=== PATIENT | female | born 1990 | race Caucasian/White ===

== ENCOUNTER 2016-10-01 12:37 | Emergency (ER) | payer OTHER ==
[~2016-10-01 12:37] MED LIST: AMOX500T2 PO; LORT5TAB PO
[2016-10-01 13:00] VITALS: BP 112/64; PULSE 87
[2016-10-01 13:01] VITALS: RESP 20; TEMP 98
[2016-10-01 13:57] LABS: HEMATOCRIT 32.3 % (35.0-46.0); MEAN CELL VOLUME 86.2 FL (80.0-100.0); MEAN CORPUSCULAR HEMOGLOBIN 29.1 PG (27.0-34.0); MEAN CORPUSCULAR HGB CONC 33.8 % (32.0-36.0); PLATELET COUNT 265 TH/MM3 (150-450); RED BLOOD COUNT 3.75 MIL/MM3 (4.00-5.30); RED CELL DISTRIBUTION WIDTH 13.1 % (11.6-17.2); REVIEW FLAG FINAL
[2016-10-01 14:02] LABS: BLOOD, URINE NEG (NEG); COMMENT (UR) CULT NOT INDICATED; CULTURE IF INDICATED CULT NOT INDICATED; GLUCOSE,URINE NEG (NEG); KETONE, URINE NEG (NEG); MUCUS URINE FEW /lpf (OCC); NITRITE,URINE NEG (NEG); PH, URINE 7.5 (5.0-8.5); SQUAMOUS EPITHELIAL CELL URINE 6 /hpf (0-5); TRANSITIONAL EPI CELLS, URINE <1 /hpf; URINE COLOR LIGHT-YELLOW (YELLW/STRAW)
[2016-10-01 14:04] LABS: BACTERIA, URINE FEW /hpf
--- NOTE | 2016-10-01 14:16 | PD ---
HPI Chief Complaint blurry vision Date Seen: Oct 01, 2016 Time Seen: 14:04 (Ivelisse Lake MD R1) Travel History International Travel<30 Days: No Contact w/Intl Traveler<30Days: No Known Affected Area: No (Ivelisse Lake MD R1) History of Present Illness HPI Patient is a 27-year-old at 31 and 6/7 weeks gestation today by first trimester ultrasound. She presents with bilateral blurry vision first noticed when she was driving to work this morning. She did not have double vision or vision loss. She did not notice the blurry vision until she got in the car. She has never worn glasses. She made to work without complication, then called the OB office and was told to come in to the OB ED for evaluation. She denies leakage of fluid, vaginal bleeding, contractions, and is feeling baby move regularly. She notes that her baseline blood pressures are 110s/60s. She denies any history of diabetes. She has not had any complications this . She has had a normal 1hr glucose tolerance test this . At her last sonogram on September 23, EFW was 4 lbs. 10 oz. She denies other medical problems. Last sexual activity was over 48 hours ago. Her last meal was at 9 AM today. She denies CHEEMA/N/V/D/fever/sick contacts/SOB/calf pain/dizziness/seeing spots. OB care is with Dr. Piper. Para: 0 : 1 (Ivelisse Lake MD R1) History Past Medical History Medical History: Denies Significant Hx (Ivelisse Lake MD R1) Obstetric History Obstetric History Normal labs were reported Normal one hour glucose tolerance test (Ivelisse Lake MD R1) Past Surgical History Surgical History: No Previous Surgery (Ivelisse Lake MD R1) Family History Narrative Family History Dad with heart attack age 50 Mom with rheumatoid arthritis Maternal with breast cancer age 50 Brother with hypertension and hyperlipidemia (Ivelisse Lake MD R1) Social History Alcohol Use: No Tobacco Use: No (quit 2 years ago) Substance Abuse: No (Ivelisse Lake MD R1) Allergies-Medications (Allergen,Severity, Reaction): Coded Allergies: No Known Allergies (Verified , 01/05/10) Home Meds Discontinued Scripts Hydrocodone-Acetaminophen (Lortab 5/500)5 Mg/500 Mg Tab1 Tab PO Q6HPRN #20 Prov:Moises Stevens MD 01/04/10 Amoxicillin & Pot Clavulanate (Augmentin 500MG/125MG)500 Mg [id number] Mg PO BID # 20 Prov:Moises Stevens MD 01/04/10 Review of Systems Except as stated in HPI: all other systems reviewed are Neg (Ivelisse Lake MD R1) Physical Exam Vital Signs Date Time Temp Pulse Resp B/P Pulse Ox O2 Delivery O2 Flow Rate FiO2 10/01/16 13:01 98.0 20 10/01/16 13:00 87 112/64 Narrative GENERAL: Well-nourished, well-developed female in no acute distress. SKIN: Warm and dry. No rashes. HEAD: Normocephalic and atraumatic. EYES: No scleral icterus. No injection or drainage. ENT: No nasal drainage noted. Mucous membranes pink. Airway patent. NECK: Supple, trachea midline. No JVD. CARDIOVASCULAR: Regular rate and rhythm without murmurs, gallops, or rubs. RESPIRATORY: Breath sounds equal bilaterally. No accessory muscle use. ABDOMEN/GI: Abdomen gravid, non-tender, bowel sounds present, no rebound, no guarding GENITOURINARY: Deferred FHT's: Category: 1 Baseline: 130 Reactive: Yes Variability moderate Decels: None EXTREMITIES: No cyanosis. 1+ pitting edema to the calves bilaterally. Pulses are 2+ in upper or lower extremities bilaterally. BACK: Nontender without obvious deformity. No CVA tenderness. NEUROLOGICAL: Awake and alert. Motor and sensory grossly within normal limits. Grossly normal strength. Normal speech. (Ivelisse Lake MD R1) Data Data Vital Signs Reviewed: Yes Orders Vital Signs (Adult) SALINA.Q4H (10/01/16 12:47) ^ Labor Status (10/01/16 12:47) Urinalysis - C+S If Indicated (10/01/16 12:47) ^ Hydration (10/01/16 12:47) Cbc No Diff, Includes Plts (10/01/16 12:47) Comprehensive Metabolic Panel (10/01/16 12:47) Uric Acid (10/01/16 12:47) Labs Laboratory Tests Test 10/01/16 10/01/16 12:50 13:48 Urine Color LIGHT-YELLOW (YELLW/STRAW) Urine Turbidity HAZY (CLEAR) Urine pH 7.5 (5.0-8.5) Urine Specific [place] 1.005 (1.002-1.035) Urine Protein NEG mg/dL (NEG-TRACE) Urine Glucose (UA) NEG mg/dL (NEG) Urine Ketones NEG mg/dL (NEG) Urine Occult Blood NEG (NEG) Urine Nitrite NEG (NEG) Urine Bilirubin NEG (NEG) Urine Urobilinogen LESS THAN 2.0 MG/DL (LESS THAN 2.0) Urine Leukocyte Esterase NEG (NEG) Urine RBC 1 /hpf (0-3) Urine WBC 1 /hpf (0-5) Urine Squamous Epithelial 6 /hpf (0-5) Cells Urine Transitional Epithelial <1 /hpf (NONE) Cells Urine Bacteria FEW /hpf (NONE) Urine Mucus FEW /lpf (OCC) Microscopic Urinalysis Comment CULT NOT INDICATED White Blood Count 9.0 TH/MM3 (4.0-11.0) Red Blood Count 3.75 MIL/MM3 (4.00-5.30) Hemoglobin 10.9 GM/DL (11.6-15.3) Hematocrit 32.3 % (35.0-46.0) Mean Corpuscular Volume 86.2 FL (80.0-100.0) Mean Corpuscular Hemoglobin 29.1 PG (27.0-34.0) Mean Corpuscular Hemoglobin 33.8 % Concent (32.0-36.0) Red Cell Distribution Width 13.1 % (11.6-17.2) Platelet Count 265 TH/MM3 (150-450) Mean Platelet Volume 7.7 FL (7.0-11.0) Sodium Level 138 MEQ/L (136-145) Potassium Level 4.0 MEQ/L (3.5-5.1) Chloride Level 105 MEQ/L (98-107) Carbon Dioxide Level 23.7 MEQ/L (21.0-32.0) Anion Gap 9 MEQ/L (5-15) Blood Urea Nitrogen 5 MG/DL (7-18) Creatinine 0.43 MG/DL (0.50-1.00) Estimat Glomerular Filtration 175 ML/MIN Rate (>89) Random Glucose 72 MG/DL (74-106) Uric Acid 4.6 MG/DL (2.6-6.0) Calcium Level 8.7 MG/DL (8.5-10.1) Total Bilirubin 0.3 MG/DL (0.2-1.0) Aspartate Amino Transf 8 U/L (15-37) (AST/SGOT) Alanine Aminotransferase 13 U/L (10-53) (ALT/SGPT) Alkaline Phosphatase 87 U/L (45-117) Total Protein 6.4 GM/DL (6.4-8.2) Albumin 2.6 GM/DL (3.4-5.0) Laboratory Tests Test 10/01/16 13:48 White Blood Count 9.0 Red Blood Count 3.75 Hemoglobin 10.9 Hematocrit 32.3 Mean Corpuscular Volume 86.2 Mean Corpuscular Hemoglobin 29.1 Mean Corpuscular Hemoglobin 33.8 Concent Red Cell Distribution Width 13.1 Platelet Count 265 Mean Platelet Volume 7.7 (Ivelisse Lake MD R1) MDM Medical Record Reviewed: Yes Narrative Course / MDM 27-year-old at 31 and 6/7 weeks gestation today by first trimester ultrasound. She presents with blurry vision, normal BP. Vital signs are within normal limits, and BP is 112/64. Intrauterine : Category 1 tracing No chronic or gestational hypertension or diabetes Normal one hour GTT Routine care Dr. Piper for [facility] Blurry vision: Patient has normal blood pressure at 112/64 Will obtain CBC, CMP, UA CBC showing mild anemia with H&H 10.9/32.3, platelets nl 265 CMP within normal limits; uric acid 4.6; random glucose is 72. UA unremarkable, negative for protein, showing few bacteria, no culture indicated. Unclear etiology for blurry vision, however, it has resolved at this time. Recommend visit with vision teacher or ophtho We will discharge patient with follow-up with Dr. Veronique Diaz (Ivelisse Lake MD R1) Diagnosis Diagnosis: Primary Impression: 31 weeks gestation of Additional Impression: blurry vision, bilateral, resolved Disposition: 01 DISCHARGE HOME Condition: Stable Patient Instructions: Early Labor Signs (ED), General Instructions Addendum Remarks I rounded on the patient. I rounded with the resident. I reviewed the resident' s assessment and plan of care for this patient. I am in agreement with the plan of care for this patient. (Simin Reyes MD) Ivelisse Lake MD R1 Oct 01, 2016 14:16 Simin Reyes MD Oct 01, 2016 15:12
[2016-10-01 14:20] LABS: ANION GAP 9 MEQ/L (5-15); AST (GOT) 8 U/L (15-37); BICARBONATE 23.7 MEQ/L (21.0-32.0); BLOOD UREA NITROGEN 5 MG/DL (7-18); CHLORIDE 105 MEQ/L (98-107); GLOMERULAR FILTRATION RATE 175 ML/MIN (>89); SODIUM (NA) 138 MEQ/L (136-145); URIC ACID 4.6 MG/DL (2.6-6.0)
[2016-10-01 14:23] LABS: ALKALINE PHOSPHATASE 87 U/L (45-117); ALT (GPT) 13 U/L (10-53); TOTAL BILIRUBIN ADULT 0.3 MG/DL (0.2-1.0)
== END 2016-10-01 15:28 | disposition home or self-care (01) ==
LOC: HOBED 12:37
DX: O26.93 Pregnancy related conditions, unspecified, third trimester (principal); H53.8 Other visual disturbances; Z3A.31 31 weeks gestation of pregnancy
CPT/HCPCS: 80053; 81001; 84550; 85027; 99284

== ENCOUNTER 2016-11-11 12:12 | Emergency (ER) | payer OTHER ==
--- NOTE | 2016-11-11 14:31 | PD ---
HPI Chief Complaint Sharp pain and fluid per vagina Date Seen: Nov 11, 2016 Time Seen: 14:28 Travel History International Travel<30 Days: No Contact w/Intl Traveler<30Days: No Known Affected Area: No History of Present Illness HPI 26-year-old female at 37 weeks 5 days comes in today complaining of sharp shooting pains in the lower pelvic area radiating into the groin and some small spurts of vaginal discharge versus fluid that occurred last night. Good movement is noted she has another appointment on Thursday for follow-up. Para: 0 : 1 History Past Medical History Medical History: Denies Significant Hx Past Surgical History Surgical History: No Previous Surgery Family History Family History: Negative Social History Alcohol Use: No Tobacco Use: No Substance Abuse: No Allergies-Medications (Allergen,Severity, Reaction): Coded Allergies: No Known Allergies (Verified , 01/05/10) Review of Systems Except as stated in HPI: all other systems reviewed are Neg Physical Exam Narrative GENERAL: Well-nourished, well-developed patient. SKIN: Warm and dry. HEAD: Normocephalic and atraumatic. EYES: No scleral icterus. No injection or drainage. ENT: No nasal drainage noted. Mucous membranes pink. Airway patent. NECK: Supple, trachea midline. No JVD. CARDIOVASCULAR: Regular rate and rhythm without murmurs, gallops, or rubs. RESPIRATORY: Breath sounds equal bilaterally. No accessory muscle use. BREASTS: Bilateral exam showed no masses , no retractions, no nipple discharge. ABDOMEN/GI: Abdomen soft, non-tender, bowel sounds present, no rebound, no guarding Gravid to [-36] weeks size Fundal Height: [-] GENITOURINARY: External Genitalia: intact and normal in appearance BUS glands: [Normal-] Cervix: [-Closed] Dilatation: [cl] Effacement: [-50] Station: [--3] Presentation: [-Vertex] Membranes: Intact amnisure negative Uterine Contractions: Occasionally irregular FHT's: Category: [1-] Baseline: [140-] Reactive: Moderate Variability: Moderate Decels: Absent EXTREMITIES: No cyanosis or edema. BACK: Nontender without obvious deformity. No CVA tenderness. NEUROLOGICAL: Awake and alert. Motor and sensory grossly within normal limits. Five out of 5 muscle strength in all muscle groups. Normal speech. Data Data Vital Signs Reviewed: Yes MDM Plan 26-year-old with intact amniotic membranes, occasional contractions, false labor. Follow-up with OB provider next week as already scheduled Diagnosis Diagnosis: Primary Impression: 37 weeks gestation of Additional Impressions: False labor False labor before 37 completed weeks of gestation Intact amniotic membranes during in third trimester Disposition: 01 DISCHARGE HOME Dania More MD Nov 11, 2016 14:31
== END 2016-11-11 14:43 | disposition home or self-care (01) ==
LOC: HOBED 12:12
DX: O47.03 False labor before 37 completed weeks of gestation, third trimester (principal); R10.2 Pelvic and perineal pain; N89.8 Other specified noninflammatory disorders of vagina; Z3A.37 37 weeks gestation of pregnancy
CPT/HCPCS: 59025; 84112

== ENCOUNTER 2016-11-17 17:54 | Inpatient (IN) | payer OTHER ==
[2016-11-17] VITALS (8 sets, daily range): BP systolic 116–143; BP diastolic 63–112; PULSE 84–99; RESP 18; TEMP 97.6–97.8
[~2016-11-17] VITALS: Ht 167.6 cm; Wt 136.1 kg
[2016-11-17] MEDS ORDERED: OXYTOCIN 30 UNITS-500ML PREMIX 500 ML IV ONE (19:00)
[2016-11-17] MEDS ORDERED: LACTATED RINGER'S 1000 ML INJ 1,000 ML IV PRN (19:00)
[2016-11-17] MEDS: LACTATED RINGER'S 1000 ML INJ 1,000 ML IV SCH (19:00)
[2016-11-17] MEDS ORDERED: ONDANSETRON HCL 4 MG/2 ML VIAL IV PRN (19:00)
[2016-11-17] MEDS ORDERED: LIDOCAINE HCL 1% 50 ML VIAL INFIL PRN (19:00)
[2016-11-17] MEDS ORDERED: LIDOCAINE HCL 1% 50 ML VIAL I-DERMAL PRN (19:00)
[2016-11-17] MEDS ORDERED: MINERAL OIL 10 ML VIAL TOPICAL PRN (19:00)
[2016-11-17] MEDS ORDERED: SODIUM CHLORID 0.9% 500 ML INJ 500 ML IV PRN (19:00)
[2016-11-17] MEDS ORDERED: CITRIC ACID-SODIUM CITRATE LIQ 30 ML UDC PO SCH (19:00)
[2016-11-17] MEDS ORDERED: SODIUM CHLORIDE 0.9% FLUSH 10 ML FLUSH IV FLUSH PRN (19:15)
--- NOTE | 2016-11-17 19:16 | HHI.HP ---
HPI Chief Complaint labor induction for oligohydramnios at term Date Seen: Nov 17, 2016 Time Seen: 19:00 Travel History International Travel<30 Days: No Contact w/Intl Traveler<30Days: No Known Affected Area: No History of Present Illness HPI 26 yo G1 with EDC 11/27/16 by LMP c/w 8 wk sonogram, seen today for routine PNC visit today in office with BPP performed as part of weekly testing due to pt's morbid obesity. BPP 8/8 but KIRIT low at 4.5. Due to these findings discussion on labor induction & pt agreed. Pt denies regular contractions, VB or LOF, endorses good FM but less than previous over past week. Pain 2/10, pressure in low pelvis. Para: 0 : 1 Last Menstrual Period: Feb 21, 2016 Miscarriage: 0 : 0 History Past Medical History Narrative Medical morbid obesity chronic depression (controlled on Citalopram since 2013) Obstetric History Obstetric History G1 = current, female fetus, EDC 11/27/16 Past Surgical History Narrative Surgical none Family History Family History: Negative Social History Alcohol Use: No Tobacco Use: No Substance Abuse: No Allergies-Medications (Allergen,Severity, Reaction): Coded Allergies: No Known Allergies (Verified , 11/17/16) Review of Systems General / Constitutional: Weight Gain, No: Fever, Chills, Other Eyes: No: Diploplia, Blurred Vision, Visual changes, Pain, Photophobia HENT: No: Headaches, Vertigo, Lightheadedness Cardiovascular: No: Irregular Rhythm, Chest Pain or Discomfort, Palpitations, Tachycardia, Syncope, Varicosities, Edema, Cyanosis Respiratory: No: Cough, Short of Breath, Other Gastrointestinal: No: Nausea, Vomiting, Diarrhea Genitourinary: Pelvic Pain (pressure), No: Decreased Urinary Output, Oliguria Musculoskeletal: No: Limited ROM, Weakness, Cramping, Edema, Pain Skin: No Rash, No Itching, No Dryness, No Lumps, No Change in Pigmentation, No Change in Nails, No Alopecia, No Lesions Neurologic: No: Weakness, Dizziness, Syncope, Focal Abnormalities, Coordination Problem, Headache, Slurred Speech, Seizures Psychiatric: No: Depression, Suicidal Ideations, Homicidal Ideation Endocrine: No: Heat Intolerance, Cold Intolerance, Polydipsia, Polyuria, Other Physical Exam Narrative GENERAL: Well-nourished, well-developed patient. Obese. SKIN: Warm and dry. HEAD: Normocephalic and atraumatic. EYES: No scleral icterus. No injection or drainage. ENT: No nasal drainage noted. Mucous membranes pink. Airway patent. NECK: Supple, trachea midline. No JVD. CARDIOVASCULAR: Regular rate and rhythm without murmurs, gallops, or rubs. RESPIRATORY: Breath sounds equal bilaterally. No accessory muscle use. BREASTS: deferred. ABDOMEN/GI: Abdomen soft, non-tender, bowel sounds present, no rebound, no guarding Gravid to [38.4] weeks size Fundal Height: 42 GENITOURINARY: External Genitalia: intact and normal in appearance BUS glands: [wnl] Cervix: [soft] Dilatation: [cl] Effacement: [th] Station: [-3] Presentation: [vtx] Membranes: [intact] Uterine Contractions: [none] FHT's: 8/8 BPP in office today EXTREMITIES: No cyanosis; +1 edema to ankles. BACK: Nontender without obvious deformity. No CVA tenderness. NEUROLOGICAL: Awake and alert. Motor and sensory grossly within normal limits. Five out of 5 muscle strength in all muscle groups. Normal speech. Data Data Vital Signs Reviewed: Yes Orders Diet Regular Basic (11/17/16 Dinner) Diet Clear Liquid (11/18/16 Breakfast) Admit To Inpatient (11/17/16 ) Code Status (11/17/16 19:00) Vital Signs (Adult) .Per protocol (11/17/16 19:00) Activity Oob Ad Stacey (11/17/16 19:00) Heart (11/17/16 19:00) Amnioinfusion (11/17/16 19:00) Urinary Catheter Management .ONCE (11/17/16 19:00) Lactated Ringer's 1000 Ml Inj (Lr 1000 M (11/17/16 19:00) Lactated Ringer's 1000 Ml Inj (Lr 1000 M (11/17/16 19:00) Sodium Chlorid 0.9% 500 Ml Inj (Ns 500 M (11/17/16 19:00) Sodium Chlor 0.9% 1000 Ml Inj (Ns 1000 M (11/17/16 19:20) Lidocaine 1% Inj (50 Ml) (Xylocaine 1% I (11/17/16 19:00) Citric Acid-Sodium Citrate Liq (Bicitra (11/17/16 19:00) Ondansetron Inj (Zofran Inj) (11/17/16 19:00) Fentanyl Inj (Fentanyl Inj) (11/17/16 19:00) Fentanyl Inj (Fentanyl Inj) (11/17/16 19:00) Complete Blood Count With Diff (11/17/16 19:00) Hold Clot (11/17/16 19:00) Abo/Rh Blood Type (11/17/16 19:00) Urinalysis - C+S If Indicated (11/17/16 19:00) Resp Oxygen Non Rebreathe Mask (11/17/16 ) ^ Epidural / Intrathecal Infus (11/17/16 19:00) Oxytocin 30 Units-500ml Premix (Pitocin (11/17/16 19:00) Lidocaine 1% Inj (50 Ml) (Xylocaine 1% I (11/17/16 19:00) Light Mineral Oil (Muri-Lube Oil) (11/17/16 19:00) Inpatient Certification (11/17/16 ) Specimen To Be Collected PRN (11/17/16 19:00) Comprehensive Metabolic Panel (11/17/16 19:00) ^ Labor Induction (11/17/16 19:03) ^ Saline Lock (11/17/16 19:03) ^ Vaginal Insert (11/17/16 19:03) ^ Vaginal Lavage (11/17/16 19:03) Heart (11/17/16 19:03) Sodium Chloride 0.9% Flush (Ns Flush) (11/17/16 21:00) Sodium Chloride 0.9% Flush (Ns Flush) (11/17/16 19:15) Dinoprostone Vag Insert (Cervidil Vag In (11/17/16 19:15) Assessment/Plan Problem List: (1) Oligohydramnios in montero in third trimester (2) Obese body habitus Assessment and Plan 26 yo G1 at 38w4d with EDC 11/27/16 admit for IOL at term due to oligohydramnios 1) IOL: plan cervidil overnight then eval in AM for additional methods as indicated; pt aware of r/b/a and risk of failure, including risk of ; consents to IOL 2) oligohydramnios: KIRIT 4.5cm today, down from 6.9cm last week; induction today 3) obesity: close to 50# wt gain this , 266# at initial visit; has been getting weekly testing since 36w with reassuring findings until today with new finding oligohydramnios; normal anatomy, pt declined genetic screening 4) h/o depression: controlled on citalopram since 2013 5) GBS neg 6) status: female, vertex, anterior placenta, EFW 89%tile at 34 wks; SD precautions Discharge Planning routine, 2-3d PP Esther Piper MD Nov 17, 2016 19:16
[2016-11-17] MEDS ORDERED: SODIUM CHLOR 0.9% 1000 ML INJ 1,000 ML IV PRN (19:20)
[2016-11-17 19:31] LABS: AUTOMATED NEUTROPHIL # 6.6 TH/MM3 (1.8-7.7); BASOPHIL % 0.3 % (0.0-2.0); EOSINOPHIL # 0.1 TH/MM3 (0-0.4); HEMATOCRIT 29.1 % (35.0-46.0); HEMO FLAGS DIFF FINAL; LYMPH % 15.3 % (9.0-44.0); LYMPHOCYTE # 1.3 TH/MM3 (1.0-4.8); MEAN CELL VOLUME 82.2 FL (80.0-100.0); MEAN CORPUSCULAR HEMOGLOBIN 27.5 PG (27.0-34.0); MEAN CORPUSCULAR HGB CONC 33.5 % (32.0-36.0); NEUT % 75.4 % (16.0-70.0); PLATELET COUNT 264 TH/MM3 (150-450); RED BLOOD COUNT 3.54 MIL/MM3 (4.00-5.30); RED CELL DISTRIBUTION WIDTH 14.2 % (11.6-17.2); WHITE BLOOD COUNT 8.8 TH/MM3 (4.0-11.0)
[2016-11-17 19:34] LABS: BACTERIA, URINE OCC /hpf; BLOOD, URINE NEG (NEG); COMMENT (UR) CULT NOT INDICATED; CULTURE IF INDICATED CULT NOT INDICATED; GLUCOSE,URINE NEG (NEG); KETONE, URINE NEG (NEG); MUCUS URINE FEW /lpf (OCC); NITRITE,URINE NEG (NEG); PH, URINE 6.5 (5.0-8.5); SQUAMOUS EPITHELIAL CELL URINE 7 /hpf (0-5); URINE COLOR YELLOW (YELLW/STRAW)
[2016-11-17 19:48] LABS: ALKALINE PHOSPHATASE 122 U/L (45-117); ALT (GPT) 13 U/L (10-53); ANION GAP 8 MEQ/L (5-15); AST (GOT) 8 U/L (15-37); BICARBONATE 23.9 MEQ/L (21.0-32.0); BLOOD UREA NITROGEN 9 MG/DL (7-18); CHLORIDE 107 MEQ/L (98-107); GLOMERULAR FILTRATION RATE 110 ML/MIN (>89); POTASSIUM 3.7 MEQ/L (3.5-5.1); SODIUM (NA) 139 MEQ/L (136-145); TOTAL BILIRUBIN ADULT 0.2 MG/DL (0.2-1.0)
[2016-11-17] MEDS ORDERED: DINOPROSTONE 10 MG VAG INSERT VAGINAL ONE (20:00)
[2016-11-17] MEDS: SODIUM CHLORIDE 0.9% FLUSH 10 ML FLUSH IV FLUSH SCH (21:00)
[2016-11-18] VITALS (8 sets, daily range): BP systolic 132–144; BP diastolic 63–83; PULSE 66–86; RESP 17–19; TEMP 97.9–98.4
[2016-11-18] MEDS ORDERED: MISOPROSTOL 25 MCG SUPP VAGINAL ONE ×3 (08:00→20:00)
--- NOTE | 2016-11-18 08:09 | PD.LABORPN ---
Subjective Subjective feeling mild ctx, not regular, endorses good FM, pain 2/10; no LOF or VB Objective Vital Signs Vital Signs Date Time Temp Pulse Resp B/P Pulse Ox O2 Delivery O2 Flow Rate FiO2 11/18/16 07:00 66 17 140/77 11/18/16 07:00 97.9 11/18/16 04:15 98.4 18 11/18/16 04:10 74 144/73 Objective Pelvic Exam: Cervix: [post] Dilatation: [FT] Effacement: [50] Station: [-3] Presentation: [vtx] Membranes: [intact] Uterine Contractions: [irregular] FHT's: Category: [I] Baseline: [120s] Reactive: [y] Variability: [y] Decels: [n] Assessment/Plan Problem List: (1) Oligohydramnios in montero in third trimester (2) Obese body habitus Assessment and Plan 26 yo G1 at 38w5d admit for term IOL due to new finding oligo on office sono 1) IOL/oligo: s/p cervidil overnight, no real change, plan breakfast, ambulate, then misoprostol PV x 1, re-eval in 4 hrs for addt'l induction agents 2) GBS neg 3) obese 4) suspected LGA infant - SD precautions 5) status: vtx, Cat I tracing Esther Piper MD Nov 18, 2016 08:09
[2016-11-18] MEDS ORDERED: PREN29TA PO (08:15)
[2016-11-18] MEDS ORDERED: ZANT150T2 PO (08:15)
[2016-11-18] MEDS: SODIUM CHLORIDE 0.9% FLUSH 10 ML FLUSH IV FLUSH SCH ×2 (09:00→21:00)
[2016-11-18] MEDS ORDERED: FAMOTIDINE 20 MG TAB PO ONE (13:30)
--- NOTE | 2016-11-18 21:45 | HHI.PR ---
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 Pt is now s/p cervidil overnight 11/17/17; has had 3 doses of cytotec 25mcg vaginally today, last dose placed around 1930P. Cat I tracing, and patient both doing well and tolerating induction without issue. Continue current induction plan, if after 4 hours pt's contractions are still inconsistent and no cervical change, will plan low dose pitocin. Cervical exam too high to successfully place hare bulb. Pt & aware of risk of failed induction, still desire to try for vaginal , aware new provider will take over in AM. Continue current plan of care, induction at term for oligohydramnios. Esther Piper MD Nov 18, 2016 21:44
[2016-11-18] MEDS ORDERED: ZOLPIDEM TARTRATE 5 MG TAB PO ONE (23:00)
[2016-11-18] MEDS: LACTATED RINGER'S 1000 ML INJ 1,000 ML IV SCH (23:21)
[2016-11-19] MEDS ORDERED: OXYTOCIN 30 UNITS-500ML PREMIX 500 ML IV SCH ×2 (00:15→04:00)
[2016-11-19] MEDS: LACTATED RINGER'S 1000 ML INJ 1,000 ML IV SCH ×2 (04:32→16:22)
[2016-11-19] MEDS: SODIUM CHLORIDE 0.9% FLUSH 10 ML FLUSH IV FLUSH SCH (10:06)
--- NOTE | 2016-11-19 11:47 | PD.LABORPN ---
Subjective Subjective comfortable has no regular painful UCs no leaking, bleeding or discharge GFM Objective Objective arch narrow baby is very high cervix is too posterior to be palpated ALEXIS developed EFW 8 1/2 pounds pelvis not proven and clinically suspect baby is not yet in the pelvis from above strip category one Assessment/Plan Problem List: (1) Oligohydramnios in montero in third trimester (2) Obese body habitus Assessment and Plan term IUP in primip with increased BMI questionable clinical pelvimetry Have discussed these findings and do not think she can bring baby down will give her the day to work on [employer]. If no descent, section at 5 pm Yasmine Bay MD Nov 19, 2016 11:47
[2016-11-19] MEDS ORDERED: ceFAZolin 2 GM PREMIX 50 ML IV SCH (12:00)
[2016-11-19] MEDS ORDERED: OXYTOCIN 10 UNIT/ML AMP ONE (16:28)
--- NOTE | 2016-11-19 17:07 | PD.OB.DELI ---
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 Urinary catheter: Inserted using sterile technique, To dependent drainage, ml urine output Sterile preparation: Duraprep, In usual fashion Position: Supine with wedge to right side Operative Features Skin Incision: Pfannenstiel Uterine Incision: Low transverse w/knife / blunt ext Membranes Ruptured: Artificially Presentation: Occiput anterior Delivery of : Assisted : Male One Minute : 8 Five Minute : 9 Weight: 8 Status of : Viable Placenta delivered: Intact Medications: Antibiotics, Oxytocin Procedure tolerated: Well Maternal Condition: Stable Condition: Stable (dictated) Yasmine Bay MD Nov 19, 2016 17:07
[2016-11-19] MEDS ORDERED: ONDANSETRON HCL 4 MG/2 ML VIAL IV PUSH PRN (17:15)
[2016-11-19] MEDS ORDERED: ACETAMINOPHEN 1000 MG/100 ML VIAL IV ONE ×2 (17:15→18:43)
[2016-11-19] MEDS ORDERED: SIMETHICONE 80 MG CHEWABLE TAB PO PRN (17:15)
[2016-11-19] MEDS ORDERED: SODIUM CHLORIDE 0.9% FLUSH 10 ML FLUSH IV FLUSH PRN (17:15)
[2016-11-19] MEDS ORDERED: OXYTOCIN 30 UNITS-500ML PREMIX 500 ML IV ONE (17:15)
[2016-11-19] MEDS ORDERED: MORPHINE SULFATE PF 5 MG/10 ML VIAL ONE (18:16)
[2016-11-19] MEDS ORDERED: ONDANSETRON HCL 4 MG/2 ML VIAL ONE (18:16)
[2016-11-19 18:37] VITALS: BP 117/49; PULSE 73; RESP 18; O2SAT 99
[2016-11-19] MEDS ORDERED: DEXAMETHASONE SOD PHOS 4 MG/ML VIAL IV ONE (18:42)
[2016-11-19] MEDS ORDERED: *Lactated Ringer's INJ 1,000 ML IV ONE (18:42)
[2016-11-19 18:50] VITALS: BP 137/68; PULSE 66; RESP 18; O2SAT 96
[2016-11-19] MEDS ORDERED: EPIDURAL-DIPHENHYDRAMINE HCL 50 MG CAP PO PRN (19:00)
[2016-11-19] MEDS ORDERED: EPIDURAL-NO SYSTEMIC NARCOTICS PRN (19:00)
[2016-11-19] MEDS ORDERED: EPIDURAL-NALOXONE HCL 0.4 MG/ML AMP IV PRN (19:00)
[2016-11-19] MEDS ORDERED: EPIDURAL-DO NOT ADMINISTER ANTICOAGULANTS PRN (19:00)
[2016-11-19] MEDS ORDERED: EPIDURAL-DIPHENHYDRAMINE HCL 50 MG/ML VIAL IV PUSH PRN (19:00)
[2016-11-19 19:02] VITALS: BP 146/65
[2016-11-19 19:03] VITALS: PULSE 66; RESP 18; O2SAT 95
[2016-11-19 19:15] VITALS: BP 141/73; PULSE 73; RESP 18; O2SAT 97
[2016-11-19 19:18] VITALS: TEMP 97.7
[2016-11-19] MEDS ORDERED: ZOLPIDEM TARTRATE 5 MG TAB PO PRN (21:00)
[2016-11-19] MEDS ORDERED: SODIUM CHLORIDE 0.9% FLUSH 10 ML FLUSH IV FLUSH SCH (21:00)
[2016-11-19] MEDS ORDERED: LACTATED RINGER'S 1000 ML INJ 1,000 ML IV SCH (22:07)
[2016-11-20] MEDS ORDERED: OXYTOCIN 30 UNITS-500ML PREMIX 500 ML IV PRN (03:15)
[2016-11-20 06:01] LABS: AUTOMATED NEUTROPHIL # 10.3 TH/MM3 (1.8-7.7); BASOPHIL % 0.2 % (0.0-2.0); EOSINOPHIL % 0.1 % (0.0-4.0); HEMO FLAGS DIFF FINAL; LYMPH % 8.9 % (9.0-44.0); LYMPHOCYTE # 1.1 TH/MM3 (1.0-4.8); MEAN CELL VOLUME 82.5 FL (80.0-100.0); MEAN CORPUSCULAR HEMOGLOBIN 27.6 PG (27.0-34.0); MEAN CORPUSCULAR HGB CONC 33.5 % (32.0-36.0); NEUT % 84.8 % (16.0-70.0); PLATELET COUNT 239 TH/MM3 (150-450); RED BLOOD COUNT 3.39 MIL/MM3 (4.00-5.30); RED CELL DISTRIBUTION WIDTH 14.1 % (11.6-17.2); WHITE BLOOD COUNT 12.1 TH/MM3 (4.0-11.0)
[2016-11-20 08:50] VITALS: BP 122/78; PULSE 91; RESP 18; TEMP 97.7
[2016-11-20] MEDS: IBUPROFEN 600 MG TAB PO PRN ×3 (09:01→21:29)
--- NOTE | 2016-11-20 09:11 | HHI.OB ---
Subjective Post Operative Day: 1 Remarks pain well controlled. has not voided yet or ambulated. Objective Vitals/I&O Vital Signs Date Time Temp Pulse Resp B/P Pulse Ox O2 Delivery O2 Flow Rate FiO2 11/19/16 19:18 97.7 11/19/16 19:15 73 18 97 11/19/16 19:15 141/73 11/19/16 19:03 66 18 95 11/19/16 19:02 146/65 11/19/16 18:50 66 137/68 11/19/16 18:50 18 96 11/19/16 18:37 73 18 117/49 99 Result Diagram: 11/20/16 0541 11/17/16 1835 Objective Remarks GENERAL: Well-nourished, well-developed patient. morbidly obese CARDIOVASCULAR: Regular rate and rhythm without murmurs, gallops, or rubs. RESPIRATORY: Breath sounds equal bilaterally. No accessory muscle use. ABDOMEN/GI: Abdomen soft, non-tender, bowel sounds present. edema of pannus Incision: dressing Clean, dry and intact. Fundus: Firm, non-tender at umbilicus. GENITOURINARY: Light to moderate bleeding. EXTREMITIES: No cyanosis or edema, non-tender, without signs of DVT. Medications and IVs Current Medications Medications (Trade) Dose Ordered Sig/Irwin Route Start Time Stop Time Status Last Admin (NS 1000 ml Inj) 1,000 ml @ 100 mls/hr Q10H PRN IV 11/17/16 19:20 (fentaNYL INJ) 50 mcg Q1H PRN IV PUSH 11/17/16 19:00 (fentaNYL INJ) 100 mcg Q1H PRN IV PUSH 11/17/16 19:00 Mineral Oil 10 ml 10 ml UNSCH PRN TOPICAL 11/17/16 19:00 Oxytocin 500 ml @ 0 mls/hr TITRATE IV 11/19/16 04:00 11/19/16 04:12 (Lr 1000 ml Inj) 1,000 ml @ 100 mls/hr Q10H IV 11/19/16 22:07 11/20/16 18:06 (NS Flush) 2 ml BID IV FLUSH 11/19/16 21:00 (NS Flush) 2 ml UNSCH PRN IV FLUSH 11/19/16 17:15 (Mylicon Chew) 80 mg QID PRN PO 11/19/16 17:15 (Motrin) 600 mg Q6H PRN PO 11/19/16 17:15 11/20/16 09:01 (Percocet 5-325 Mg) 1 tab Q4H PRN PO 11/19/16 17:15 (Percocet 5-325 Mg) 2 tab Q4H PRN PO 11/19/16 17:15 (Julianna-Colace) 2 tab Q12H PRN PO 11/19/16 17:15 (Ambien) 5 mg HS PRN PO 11/19/16 21:00 (M-M-R Ii Inj) 0.5 ml ONCE ONCE SQ 11/20/16 16:00 11/20/16 16:01 (Boostrix Inj) 0.5 ml ONCE ONCE IM 11/20/16 16:00 11/20/16 16:01 (Zofran Inj) 4 mg Q6H PRN IV PUSH 11/19/16 17:15 Miscellaneous Information NO SYSTEMIC NARCOTICS TO BE GIVEN FO... UNSCH PRN .XX 11/19/16 19:00 11/20/16 18:59 (Narcan Inj) 0.4 mg UNSCH PRN IV 11/19/16 19:00 11/20/16 18:59 (Benadryl Inj) 25 mg Q6H PRN IV PUSH 11/19/16 19:00 11/20/16 18:59 (Benadryl) 50 mg Q6H PRN PO 11/19/16 19:00 11/20/16 18:59 Miscellaneous Information ALL NURSING DEPARTMENTS UNSCH PRN .XX 11/19/16 19:00 11/20/16 18:59 Assessment/Plan Problem List: (1) Oligohydramnios in montero in third trimester (2) Obese body habitus Assessment and Plan 26 yo G1P s/p primary ltcd for op presentation, induced at 38w4d for term and oligohydramnios POD 1- encourage ambulation, supportive care morbid obesity: at risk for postop wound infection, postop care and wound precautions reviewed h/o depression: controlled on citalopram since 2013 Discharge Planning routine, 2-3d PP Sandy Ridley MD Nov 20, 2016 09:11
--- NOTE | 2016-11-20 09:12 | HHI.DCPOC ---
Discharge Care Plan Diagnosis: (1) delivery delivered Your Health Problems Are: delivery Report Symptoms to Your Doctor -Temperate above 100.5 degrees -Redness, of incision or excessive or foul smelling drainage -Unusual pain or calf pain -Increased vaginal bleeding -Painful or difficulty urinating -Feelings of extreme sadness or anxiety after 2 weeks Goals to Promote Your Health * To prevent worsening of your condition and complications * To maintain your health at the optimal level Directions to Meet Your Goals Take your medications as prescribed Follow your dietary instruction Follow activity as directed Ensure plenty of rest for recovery Drink fluids for hydration Keep your appointments as scheduled Take your immunizations and boosters as scheduled If your symptoms worsen call your PCP, if no PCP go to Urgent Care Center or Emergency Room Smoking is Dangerous to Your Health. Avoid second hand smoke Call the 24-hour crisis hotline for domestic abuse at Sandy Ridley MD Nov 20, 2016 09:12
[2016-11-20] MEDS ORDERED: IBUP-232 PO (09:13)
[2016-11-20] MEDS ORDERED: OXYC1TAB63 PO (09:13)
[2016-11-20 12:40] VITALS: BP 124/74; PULSE 84; RESP 18; TEMP 98
[2016-11-20] MEDS ORDERED: MEASLES, MUMPS, RUBELLA VACCINE 0.5 ML VIAL SQ ONE (16:00)
[2016-11-20] MEDS ORDERED: DIPHTH/TETANUS/ACEL PERTUSSIS (BOOSTER) 0.5 ML VIAL/PFS IM ONE (16:00)
[2016-11-20 17:00] VITALS: BP 137/69; PULSE 97; RESP 18; TEMP 97.8
[2016-11-20] MEDS: DOCUSATE SODIUM 50 MG/SENNA 8.6 MG TAB PO PRN (21:28)
[2016-11-20] MEDS: oxyCODONE/ACETAMINOPHEN 5 MG/325 MG TAB PO PRN (22:25)
[2016-11-21] MEDS: oxyCODONE/ACETAMINOPHEN 5 MG/325 MG TAB PO PRN ×5 (02:48→22:00)
[2016-11-21] MEDS: IBUPROFEN 600 MG TAB PO PRN ×4 (03:27→23:39)
--- NOTE | 2016-11-21 07:20 | HHI.OB ---
Subjective Post Operative Day: 2 Remarks Doing well, Baby is doing well, Bleeding and pain are ok Objective Vitals/I&O Vital Signs Date Time Temp Pulse Resp B/P Pulse Ox O2 Delivery O2 Flow Rate FiO2 11/20/16 17:00 97.8 11/20/16 17:00 97 18 137/69 11/20/16 12:40 98.0 84 18 124/74 11/20/16 08:50 97.7 91 18 122/78 Result Diagram: 11/20/16 0541 11/17/16 1835 Objective Remarks GENERAL: Well-nourished, well-developed patient. morbidly obese CARDIOVASCULAR: Regular rate and rhythm without murmurs, gallops, or rubs. RESPIRATORY: Breath sounds equal bilaterally. No accessory muscle use. ABDOMEN/GI: Abdomen soft, non-tender, bowel sounds present. edema of pannus Incision: dressing Clean, dry and intact. Fundus: Firm, non-tender at umbilicus. GENITOURINARY: Light to moderate bleeding. EXTREMITIES: No cyanosis or edema, non-tender, without signs of DVT. Medications and IVs Current Medications Medications (Trade) Dose Ordered Sig/Irwin Route Start Time Stop Time Status Last Admin (NS 1000 ml Inj) 1,000 ml @ 100 mls/hr Q10H PRN IV 11/17/16 19:20 (fentaNYL INJ) 50 mcg Q1H PRN IV PUSH 11/17/16 19:00 (fentaNYL INJ) 100 mcg Q1H PRN IV PUSH 11/17/16 19:00 Mineral Oil 10 ml 10 ml UNSCH PRN TOPICAL 11/17/16 19:00 (Pitocin 30 Units-NS 500 ml Premix) 500 ml @ 0 mls/hr TITRATE IV 11/19/16 04:00 11/19/16 04:12 (NS Flush) 2 ml BID IV FLUSH 11/19/16 21:00 (NS Flush) 2 ml UNSCH PRN IV FLUSH 11/19/16 17:15 (Mylicon Chew) 80 mg QID PRN PO 11/19/16 17:15 (Motrin) 600 mg Q6H PRN PO 11/19/16 17:15 11/21/16 03:27 (Percocet 5-325 Mg) 1 tab Q4H PRN PO 11/19/16 17:15 11/21/16 02:48 (Percocet 5-325 Mg) 2 tab Q4H PRN PO 11/19/16 17:15 (Julianna-Colace) 2 tab Q12H PRN PO 11/19/16 17:15 11/20/16 21:28 (Ambien) 5 mg HS PRN PO 11/19/16 21:00 (Zofran Inj) 4 mg Q6H PRN IV PUSH 11/19/16 17:15 Assessment/Plan Problem List: (1) Oligohydramnios in montero in third trimester (2) Obese body habitus Assessment and Plan POD#2 Doing well Routine care Fe after percocet Discharge Planning routine, 2-3d PP Caro Gautam MD Nov 21, 2016 07:20
[2016-11-21 07:30] VITALS: BP 121/70; PULSE 76; RESP 18; TEMP 97.4
[2016-11-21] MEDS: DOCUSATE SODIUM 50 MG/SENNA 8.6 MG TAB PO PRN ×2 (10:26→23:39)
--- NOTE | 2016-11-21 10:39 | MP ---
cc: HERMANYASMINE DATE OF SURGERY 11/17/2016 PREOPERATIVE DIAGNOSIS Term intrauterine with trial of labor, failure of descent with macrosomia. POSTOPERATIVE DIAGNOSIS Term intrauterine with trial of labor, failure of descent with macrosomia, persistent right occiput transverse PROCEDURE Primary low transverse segment section ANESTHESIA Epidural with Duramorph SURGEON Yasmine Bay MD FURNACE OPERATOR Labor and delivery staff FINDINGS A living female in ROT position was delivered with 's 8 at one and 9 at five. She weighed 8 pounds 7 ounces. She had no caput. The uterus was exceptionally thin, literally tissue paper thin and extreme care was taken to try and enter into the intrauterine cavity without compromising the skin on the baby's scalp. Hemostat were used to try to elevate the crepe paper thin uterus. Despite this, a 6-mm superficial laceration was incurred on the scalp with the baby consistent with the baby in ROT position. Her 's were 8 at one and 9 at five. She weighed 8 pounds 7 ounces. Sponge, instrument, needle count correct. The placenta was anterior low-lying. Estimated blood loss was average. Both mom and baby tolerated the procedure well. PROCEDURE The patient had been appraised in the morning of the likelihood of lack of descent due to what was already determined as deep transverse arrest. She and the baby were doing well and she was given a significant time to see she could bring the baby down using a peanut ball and position changes. When it became apparent that there was no cervical change or descent, she was taken to the back and then started reinforcement of her spinal with Duramorph. She was placed in the dorsal supine position with weight off the vena cava. Two grams of Ancef had been given. She was prepped and draped in the usual sterile fashion. A time-out was performed. A Pfannenstiel incision was made with a knife and carried down through to the rectus fascia with the Bovie on cutting. The rectus fascia was incised and taken off the rectus muscle. The rectus muscle in the midline. The parietal peritoneum was entered sharply. A bladder flap was created off the very very thin lower uterine segment. It was millimeters thick at best. Very very careful attempts were made to use the knife to cut through this very thin lower uterine segment. Hemostats were used to elevate the tissue which would just tear. One last incision was made with the knife to enter into the intrauterine cavity with no fluid incurred, but a 6 mm superficial laceration on the baby's scalp. This was then expanded bluntly and the was delivered with the findings as noted above using vacuum assistance as her head was not amendable to delivery with manual techniques alone. Her shoulders and body were then delivered. The cord was allowed to pulse for 45 seconds. It was clamped and cut and she was handed off to the neonatology team in attending. The placenta was delivered manually intact with a three-vessel cord to be delivered to [facility] and then the uterus was exteriorized, cleaned with a lap sponge after the . After the placenta was removed and then closed with chromic in a running interlocking fashion with a second horizontal imbricating layer. The uterus was then replaced in the pelvic cavity and irrigation was performed. Then the rectus muscles were approximated with interrupted's with care to avoid underlying structures. The fascia was closed with 1-Vicryl in a non-interlocking fashion. The subcutaneous layer was closed with 3-0 plain and the skin was closed with 4-0 Vicryl on a Jemal needle. Estimated blood loss was average. Sponge, instrument, needle count were correct. She tolerated the procedure well. MD AMRIT Syed/ABBY /5:56 PM /10:20 AM
[2016-11-21 21:47] VITALS: BP 133/74; PULSE 93; RESP 18; TEMP 98.2
[2016-11-22] MEDS: oxyCODONE/ACETAMINOPHEN 5 MG/325 MG TAB PO PRN ×3 (01:53→11:26)
[2016-11-22] MEDS: IBUPROFEN 600 MG TAB PO PRN ×2 (05:52→11:26)
[2016-11-22 08:00] VITALS: BP 137/73; PULSE 97; RESP 18; TEMP 97.6
[2016-11-22] MEDS: DOCUSATE SODIUM 50 MG/SENNA 8.6 MG TAB PO PRN (11:27)
[2016-11-22 12:51] VITALS: RESP 16
== END 2016-11-22 13:30 | disposition home or self-care (01) | DRG 766 ==
LOC: H2EA 17:54 → H1EA 11-19 19:40
PROVIDERS: ADMIT Obstetrics & Gynecology; ATTEND Obstetrics & Gynecology
PROC: 10D00Z1 Extraction of Products of Conception, Low, Open Approach (ICD-10-PCS; principal; 2016-11-17)
PROC: 00HU33Z Insertion of Infusion Device into Spinal Canal, Percutaneous Approach (ICD-10-PCS; 2016-11-17)
PROC: 3E0R3CZ (ICD-10-PCS; 2016-11-17)
PROC: 10D07Z6 Extraction of Products of Conception, Vacuum, Via Natural or Artificial Opening (ICD-10-PCS; 2016-11-17)
DX: O41.03X0 Oligohydramnios, third trimester, not applicable or unspecified (principal); E66.01 Morbid (severe) obesity due to excess calories; Z37.0 Single live birth; O99.214 Obesity complicating childbirth; O32.4XX0 Maternal care for high head at term, not applicable or unspecified; O36.63X0 Maternal care for excessive fetal growth, third trimester, not applicable or unspecified; Z3A.38 38 weeks gestation of pregnancy
CPT/HCPCS: 59025; 80053; 81001; 85025; 86850; 86900; 86901; 90715; J0131; J0690; J1100; J2274; J2405; J2590; J7120